=== PATIENT | male | born 1965 | race Two or more races ===

== ENCOUNTER → 2020-03-10 | Outpatient (CLI) | payer OTHER ==
--- NOTE | 2020-03-10 12:37 | RAD ---
EXAMINATION: MRI RIGHT SHOULDER WITHOUT IV CONTRAST CLINICAL HISTORY: Right shoulder pain TECHNIQUE: Multiplanar multisequential images obtained through the shoulder without intravenous contrast. COMPARISON: None FINDINGS: Prominent motion artifact on sagittal and coronal T2-weighted images limits evaluation. TENDONS: - Supraspinatus: No discrete tear visualized. - Infraspinatus: No discrete tear visualized. - Subscapularis: No discrete tear visualized. - Teres Minor: Intact. - Biceps Tendon: The long head biceps tendon is intact and appropriately located. MUSCLES: Muscle bulk and signal intensity are within normal limits. LABRUM: Degenerative tearing strongly suggested in the superior labrum, but suboptimally evaluated due to patient motion. GLENOHUMERAL JOINT: - Joint Fluid: No joint effusion or synovitis. - Cartilage: No full-thickness chondral defect visualized. ACROMIOCLAVICULAR JOINT: Marked hypertrophic degenerative changes. BONES/MARROW: No evidence of acute fracture or suspicious marrow replacing process. OTHER: No other significant abnormality identified. IMPRESSION: Limited evaluation secondary to prominent motion artifact. No full-thickness rotator cuff tear visualized. Degenerative tearing in the superior labrum strongly suggested but suboptimally evaluated. Electronically signed by: Constantin Lubin DO (03/10/2020 12:34 PM) [id number]
== END ==
LOC: MRI 09:27
PROVIDERS: ATTEND Physical Medicine & Rehabilitation
DX: S41.011A Laceration without foreign body of right shoulder, initial encounter (principal); M19.011 Primary osteoarthritis, right shoulder; X58.XXXA Exposure to other specified factors, initial encounter; Y93.89 Activity, other specified; Y92.89 Other specified places as the place of occurrence of the external cause; Y99.8 Other external cause status
CPT/HCPCS: 73221